=== PATIENT | male | born 2000 | race Two or more races ===

== ENCOUNTER 2024-02-12 19:32 | Emergency (ER) | payer OTHER ==
[2024-02-12] MEDS: Sulfamethoxazole/Trimethoprim 800-160 MG Tab PO ONE (20:44)
== END 2024-02-12 20:50 | disposition home or self-care (01) ==
LOC: JD.ED 19:32
DX: L08.9 Local infection of the skin and subcutaneous tissue, unspecified (principal); Z79.899 Other long term (current) drug therapy
CPT/HCPCS: 99283; A9270